=== PATIENT | female | born 1980 | race Caucasian/White ===

== ENCOUNTER 2024-11-02 14:11 | Observation (INO) ==
[2024-11-02 14:36] LABS: Basophils%(Percent) Auto 0.3 (0.1-0.85); Eosinophils#(Absolute)Auto 0.2 (0.0-0.2); Eosinophils%(Percent) Auto 1.5 % (0.4-2.8); Granulocytes % - Auto 44.8 % (47.8-71.3); Granulocytes#(Absolute)- Auto 4.6 (2.3-6.0); Hematocrit 39.2 % (35.9-46.7); Monocytes #(Absolute)- Auto 0.6 (1.1-3.1); Monocytes %(Percent)- Auto 6.1 % (3.6-9.8); Platelet Count 388 K/uL (152-353); White Blood Count 10.2 K/uL (4.3-9.3)
[2024-11-02] MEDS ORDERED: ASPIRIN 325 MG TABLET.DR PO ONE (14:38)
[2024-11-02] MEDS: ASPIRIN 325 MG TABLET PO ONE (14:39)
[2024-11-02 14:42] LABS: Potassium 4.3 mmol/L (3.6-5.2)
[2024-11-02 17:21] LABS: Urine Appearance CLEAR (CLEAR); Urine Blood NEGATIVE (NEG - TRACE); Urine Color YELLOW (STRAW/YELL.); Urine Urobilinogen Normal (NORMAL)
[2024-11-02 17:39] LABS: Amphetamine Screen Urine NEG. (NEGATIVE); Cannabinoid Screen Urine NEG. (NEGATIVE); Cocaine Screen Urine NEG. (NEGATIVE); Methadone Screen Urine NEG. (NEGATIVE); Opiate Screen Urine NEG. (NEGATIVE)
--- NOTE | 2024-11-02 17:59 | Emergency Department Note ---
HPI - Chest Pain General Chief Complaint: Chest Pain Stated Complaint: chest pain Time Seen by Provider: 11/02/24 14:22 Source: patient Mode of arrival: walk-in Limitations: no limitations History of Present Illness HPI narrative: 44-year-old female patient presents conscious alert and oriented x 4 to the ER complaining of substernal chest pain with heart palpitations that started about 30 minutes prior to coming to ER. Patient states that the palpitations were taking her breath. She states that when this started she became very anxious. Patient states that she has a history of hypertension and that she is compliant with her medications. Patient does state that she is a smoker and drinks beer on occasion. Denies any cough cold congestion. Denies any fever chills or bodyaches. MD complaint: Reports chest pain Pertinent past history: Reports other (anxiety); Denies coronary artery disease, prior [place], [employer], known aortic aneurysm, asthma or CABG Onset (ago): minute(s) (30) Timing of current episode: Reports constant Prior episodes: No Onset: Reports during rest Pain location: Reports left chest Pain radiation: Reports none Severity: mild Quality: Reports heaviness Relieving factors: Reports nothing Exacerbating factors: Reports nothing Context: Denies recent illness, recent surgery, recent immobilization, recent travel, trauma/injury, new medications, history of DVT/PE or non compliance with medication Associated symptoms: Denies nausea, vomiting, diaphoresis or dyspnea Treatment prior to arrival: Reports none Risk Factors Coronary artery disease risk factors: Reports hypertension and family history of CAD before age 50 Thoracic aortic dissection risk factors: Reports longstanding hypertension Related Data On Oral Contraceptives: No Allergies Allergy/AdvReac Type Severity Reaction Status Date / Time No Known Drug Allergies Allergy Verified 11/02/24 14:25 Review of Systems Status of ROS 10 or more systems reviewed and unremark able except as noted in history and below Cardiovascular Reports: chest pain and palpitations Exam Constitutional: normal general appearance, no apparent distress and average body habitus Vital Signs - 24 hr 11/02/24 14:15 11/02/24 14:15 11/02/24 14:30 Temperature 98.0 F Pulse Rate 112 H 92 H Respiratory Rate 20 15 Blood Pressure 175/100 153/89 Pulse Oximetry 99 99 98 Oxygen Delivery Me thod Room Air Room Air 11/02/24 15:01 11/02/24 15:31 11/02/24 16:15 Temperature Pulse Rate 91 H 85 99 H Respiratory Rate 16 16 16 Blood Pressure 144/87 133/73 146/92 Pulse Oximetry 98 98 99 Oxygen Delivery Me thod Room Air Room Air Room Air HENMT: normocephalic Eyes: PERRL, EOMs intact bilaterally and conjunctivae normal Neck/C-Spine: visual inspection normal and trachea midline Lymph: no lymphadenopathy noted Chest: inspection of chest normal and palpation of chest normal Respiratory: breath sounds equal bilaterally, normal respiratory effort and clear to auscultation bilaterally Cardiovascular: normal heart rate noted and regular rhythm noted Gastrointestinal: abdomen normal to inspection, abdomen soft to palpation and nontender to palpation Back/Pelvis: spine normal to inspection Extremities: normal to inspection 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 Abdomen soft and nontender to palpation. Normoactive bowel sounds. No rigidity or distention is noted. EKG shows normal sinus rhythm with occasional PVCs. Cardiac enzymes are negative x 2. Patient was given aspirin 325 mg p.o. I have discussed with the patient and they desire to admit her for further evaluation and treatment of chest pain. Patient is in agreement. Vital Signs Vital signs: Vital Signs Temperature 98.0 F 11/02/24 14:15 Pulse Rate 112 H 11/02/24 14:15 Respiratory Rate 20 11/02/24 14:15 Blood Pressure 175/100 11/02/24 14:15 Pulse Oximetry 99 11/02/24 14:15 Oxygen Delivery Method Room Air 11/02/24 14:15 Temperature 98.0 F 11/02/24 14:15 Pulse Rate 99 H 11/02/24 16:15 Respiratory Rate 16 11/02/24 16:15 Blood Pressure 146/92 11/02/24 16:15 Pulse Oximetry 99 11/02/24 16:15 Oxygen Delivery Method Room Air 11/02/24 16:15 MDM - Chest Pain Differential Diagnosis Differential diagnosis: Likely fracture of rib, pneumothorax, stable angina, unstable angina pectoris, atypical chest pain, st elevation myocardial infarction, costochondritis and chest pain Medical Records Data Attestation: I reviewed the patient's medical records. Lab Data Attestation: I reviewed the patient's lab results. Labs: Lab Results 11/02/24 11/02/24 11/02/24 Range/Units 14:32 15:09 16:40 WBC 10.2 H (4.3-9.3) K/uL RBC 4.1 (4.00-5.50) M/uL Hgb 13.2 (12.5-15.8) gm/dL Hct 39.2 (35.9-46.7) % MCV 96.0 H (81.0-93.7) fl MCH 32.3 H (27.6-32.2) pg MCHC 33.6 (33.1-35.3) g/dl RDW 13.5 (11.4-14.2) % Plt Count 388 H (152-353) K/uL MPV 8.3 (6.9-10.8) fl Gran % 44.8 L (47.8-71.3) % Lymph % (Auto) 47.3 H (20.0-43.0) % [place] % (Auto) 6.1 (3.6-9.8) % Eos % (Auto) 1.5 (0.4-2.8) % Baso % (Auto) 0.3 (0.1-0.85) Lymph # (Auto) 4.8 H (1.1-3.1) [place] # (Auto) 0.6 L (1.1-3.1) Eos # (Auto) 0.2 (0.0-0.2) Baso # (Auto) 0.0 (0.0-0.1) Absolute Gran (auto) 4.6 (2.3-6.0) Sodium 138 (136-145) mmol/L Potassium 4.3 (3.6-5.2) mmol/L Chloride 101.0 (98-107) mmol/L Carbon Dioxide 25 (21-32) mmol/L Anion Gap 12.0 (4-14) mEq/L BUN 10 (7-18) mg/dL Creatinine 0.9 (0.6-1.3) mg/dL Estimated GFR 79.9 (>59.9) Glucose 109 (70-110) mg/dL Calcium 8.6 (8.5-10.1) mg/dL Total Bilirubin 0.14 (0.0-1.0) mg/dL AST 15 (15-37) U/L ALT 20 L (30-65) U/L Alkaline Phosphatase 74 (50-136) U/L Total Creatine Kinase 57 (26-192) U/L Troponin I High Sens 18.50 18.20 (4.0-60.4) ng/L Total Protein 7.5 (6.4-8.2) g/dL Albumin 3.7 (3.4-5.0) g/dL Urine Color (STRAW/YELL.) Urine Appearance (CLEAR) Ur Specific [place] (1.001-1.035) Urine Protein (NEGATIVE) Urine Glucose (UA) (NORMAL) Urine Ketones (NEGATIVE) Urine Occult Blood (NEG - TRACE) Urine Nitrite (NEGATIVE) Urine Bilirubin (NEGATIVE) Urine Urobilinogen (NORMAL) Ur Leukocyte Esterase (NEGATIVE) Urine Test (Negative) Fluid pH (5 - 9) Urine Opiates Screen (NEGATIVE) Urine Methadone Screen (NEGATIVE) Barbiturate Screen (NEGATIVE) Ur Phencyclidine Scrn (NEGATIVE) Amphetamines Screen (NEGATIVE) U Benzodiazepines Scrn (NEGATIVE) Urine Cocaine Screen (NEGATIVE) U Marijuana (THC) Screen (NEGATIVE) COVID-19 ([place]) Not detected (Not Detectd) Influenza Type A Ag Negative (Negative) Influenza Type B Ag Negative (Negative) 11/02/24 Range/Units 17:06 WBC (4.3-9.3) K/uL RBC (4.00-5.50) M/uL Hgb (12.5-15.8) gm/dL Hct (35.9-46.7) % MCV (81.0-93.7) fl MCH (27.6-32.2) pg MCHC (33.1-35.3) g/dl RDW (11.4-14.2) % Plt Count (152-353) K/uL MPV (6.9-10.8) fl Gran % (47.8-71.3) % Lymph % (Auto) (20.0-43.0) % [place] % (Auto) (3.6-9.8) % Eos % (Auto) (0.4-2.8) % Baso % (Auto) (0.1-0.85) Lymph # (Auto) (1.1-3.1) [place] # (Auto) (1.1-3.1) Eos # (Auto) (0.0-0.2) Baso # (Auto) (0.0-0.1) Absolute Gran (auto) (2.3-6.0) Sodium (136-145) mmol/L Potassium (3.6-5.2) mmol/L Chloride (98-107) mmol/L Carbon Dioxide (21-32) mmol/L Anion Gap (4-14) mEq/L BUN (7-18) mg/dL Creatinine (0.6-1.3) mg/dL Estimated GFR (>59.9) Glucose (70-110) mg/dL Calcium (8.5-10.1) mg/dL Total Bilirubin (0.0-1.0) mg/dL AST (15-37) U/L ALT (30-65) U/L Alkaline Phosphatase (50-136) U/L Total Creatine Kinase (26-192) U/L Troponin I High Sens (4.0-60.4) ng/L Total Protein (6.4-8.2) g/dL Albumin (3.4-5.0) g/dL Urine Color Yellow (STRAW/YELL.) Urine Appearance Clear (CLEAR) Ur Specific [place] 1.020 (1.001-1.035) Urine Protein Negative (NEGATIVE) Urine Glucose (UA) Normal (NORMAL) Urine Ketones Negative (NEGATIVE) Urine Occult Blood Negative (NEG - TRACE) Urine Nitrite Negative (NEGATIVE) Urine Bilirubin Negative (NEGATIVE) Urine Urobilinogen Normal (NORMAL) Ur Leukocyte Esterase Negative (NEGATIVE) Urine Test Negative (Negative) Fluid pH 7.0 (5 - 9) Urine Opiates Screen Neg. (NEGATIVE) Urine Methadone Screen Neg. (NEGATIVE) Barbiturate Screen Neg. (NEGATIVE) Ur Phencyclidine Scrn Neg. (NEGATIVE) Amphetamines Screen Neg. (NEGATIVE) U Benzodiazepines Scrn Neg. (NEGATIVE) Urine Cocaine Screen Neg. (NEGATIVE) U Marijuana (THC) Screen Neg. (NEGATIVE) COVID-19 ([place]) (Not Detectd) Influenza Type A Ag (Negative) Influenza Type B Ag (Negative) Imaging Data Imaging ordered: Chest x-ray ECG Data Attestation: I personally reviewed and interpreted this ECG as follows: Interpretation: Normal sinus rhythm with occasional PVCs Discharge Plan Discharge Patient Disposition: Admitted As Observation Condition: Stable Clinical Impression: Chest pain Time of Disposition: 17:55 [facility] Medical History Perirectal abscess Hypertension Anxiety Surgical History History of tubal ligation Social History Smoking status: former smoker What is your current living situation: I presently have a place to live
[2024-11-02] MEDS: MELATONIN 5 MG TABLET PO PRN (22:04)
[2024-11-03 07:57] VITALS: BP 135/83; PULSE 60; RESP 19; TEMP 97.8
--- NOTE | 2024-11-03 09:46 | Short Stay Summary ---
H&P: HPI History of Present Illness Chief complaint: chest pain Narrative: Pleasant 44 year old female here with complaints of chest pain and palpitations that were taking her breath. She was admitted for observation and troponins have been negative. She denies any further symptoms. Tox screen and urine negative. [place] was [place] to the [place] vacation and does not live here locally. She is accompanied by family members. Review of Systems Status of ROS 10 or more systems reviewed and unremark able except as noted in history and below [facility] Medical History (Updated 11/03/24 @ 09:44 by Chelsea Davila NP) Hypertension Perirectal abscess Anxiety Surgical History History of tubal ligation Family History Parent DAD No problems noted. Grandmother GRANDMOTHER Heart disease Other History of heart attack Social History Smoking status: former smoker What is your current living situation: I presently have a place to live Problems where you live: no known problems Highest level of school completed/degree received: College Meds Home Medications and Allergies Home Medications Medication Instructions Recorded Confirmed Type fluoxetine 20 mg capsule 20 mg PO DAILY 11/02/2410/07 History metoprolol succinate 50 mg 50 mg PO DAILY 11/02/24 History tablet,extended release 24 hr pantoprazole 40 mg tablet,delayed 40 mg PO DAILY 11/0211/02/24 History release Allergies Allergy/AdvReac Type Severity Reaction Status Date / Time No Known Drug Allergies Allergy Verified 11/02/24 14:25 Exam Constitutional: normal general appearance, no apparent distress, average body habitus, no limitations and alert Vital Signs - 24 hr 11/02/24 14:15 11/02/24 14:15 11/02/24 14:30 Temperature 98.0 F Pulse Rate 112 H 92 H Pulse Rate [Right Brachial] Respiratory Rate 20 15 Blood Pressure 175/100 153/89 Blood Pressure [Ri ght Arm] Pulse Oximetry 99 99 98 Oxygen Delivery Me thod Room Air Room Air 11/02/24 15:01 11/02/24 15:31 11/02/24 16:15 Temperature Pulse Rate 91 H 85 99 H Pulse Rate [Right Brachial] Respiratory Rate 16 16 16 Blood Pressure 144/87 133/73 146/92 Blood Pressure [Ri ght Arm] Pulse Oximetry 98 98 99 Oxygen Delivery Me thod Room Air Room Air Room Air 11/02/24 17:00 11/02/24 18:00 11/02/24 18:12 Temperature 98 F Pulse Rate 87 84 Pulse Rate [Right Brachial] 83 Respiratory Rate 19 15 20 Blood Pressure 162/83 143/89 Blood Pressure [Ri ght Arm] 137/94 Pulse Oximetry 98 97 96 Oxygen Delivery Me thod Room Air Room Air Room Air 11/02/24 18:12 11/02/24 18:15 11/02/24 19:54 Temperature 98.0 F 98.2 F Pulse Rate 84 Pulse Rate [Right Brachial] 79 Respiratory Rate 15 17 Blood Pressure 143/89 Blood Pressure [Ri ght Arm] 139/101 Pulse Oximetry 97 98 Oxygen Delivery Ma thod Room Air Room Air 11/03/24 00:00 11/03/24 04:00 11/03/24 07:56 Temperature 98.2 F 98.3 F 97.8 F Pulse Rate Pulse Rate [Right Brachial] 96 H 66 60 Respiratory Rate 18 17 19 Blood Pressure Blood Pressure [Ri ght Arm] 106/58 136/80 135/83 Pulse Oximetry 96 98 96 Oxygen Delivery Me thod Room Air Room Air Room Air HENMT: normocephalic Eyes: PERRL, EOMs intact bilaterally, conjunctivae normal and no nystagmus Neck/C-Spine: visual inspection normal and trachea midline Lymph: no lymphadenopathy noted Chest: inspection of chest normal and palpation of chest normal Respiratory: breath sounds equal bilaterally, normal respiratory effort, clear to auscultation bilaterally, no wheezes, no rales, no retractions and no use of accessory muscles Cardiovascular: normal heart rate noted, regular rhythm noted, no gallop, no rub, no murmur, no JVD, no clicks, peripheral pulses 2+ throughout and no addit ional abnormal heart sounds Gastrointestinal: abdomen normal to inspection, abdomen soft to palpation and nontender to palpation Genitourinary: deferred Back/Pelvis: spine normal to inspection Extremities: normal to inspection, normal to palpation, no tenderness, full ROM, no joint enlargement and no deformity 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, no movement abnormality noted, no focal motor deficit noted, no sensory deficits noted, gait normal, speech normal, coordination normal and GCS normal Psychiatry: mental status grossly normal, oriented x3, thought process normal, cooperative, psychomotor activity normal and memory normal Skin: skin color normal, no rash, no jaundice, no petechiae and no mottling Assessment and Plan Assessment and Plan (1) Palpitations: Code(s): R00.2 - Palpitations (2) Chest pain: Code(s): R07.9 - Chest pain, unspecified (3) Hypertension: Code(s): I10 - Essential (primary) hypertension (4) Anxiety: Code(s): F41.9 - Anxiety disorder, unspecified Plan Resolved, negative EKG and troponins. Discharge home to follow up with PCP. Results Labs Labs: CBC 11/02/24 Range/Units 14:32 WBC 10.2 H (4.3-9.3) K/uL RBC 4.1 (4.00-5.50) M/uL Hgb 13.2 (12.5-15.8) gm/dL Hct 39.2 (35.9-46.7) % Plt Count 388 H (152-353) K/uL Gran % 44.8 L (47.8-71.3) % Lymph % (Auto) 47.3 H (20.0-43.0) % [place] % (Auto) 6.1 (3.6-9.8) % Eos % (Auto) 1.5 (0.4-2.8) % Baso % (Auto) 0.3 (0.1-0.85) Lymph # (Auto) 4.8 H (1.1-3.1) [place] # (Auto) 0.6 L (1.1-3.1) Eos # (Auto) 0.2 (0.0-0.2) Baso # (Auto) 0.0 (0.0-0.1) Absolute Gran (auto) 4.6 (2.3-6.0) CMP 11/02/24 14:32 Sodium 138 Potassium 4.3 Chloride 101.0 Carbon Dioxide 25 BUN 10 Creatinine 0.9 Glucose 109 Calcium 8.6 Cardiac Enzymes 11/02/24 14:32 Total Creatine Kinase 57 Liver Function 11/02/24 Range/Units 14:32 Total Bilirubin 0.14 (0.0-1.0) mg/dL AST 15 (15-37) U/L ALT 20 L (30-65) U/L Alkaline Phosphatase 74 (50-136) U/L Albumin 3.7 (3.4-5.0) g/dL Urine 11/02/24 17:06 Urine Color Yellow Urine Appearance Clear Ur Specific [place] 1.020 Urine Protein Negative Urine Glucose (UA) Normal DS: Providers Provider Date of admission: 11/02/24 18:01 Primary care physician: NO PCP Provider Attending physician on discharge: Chelsea Davila Discharging clinician: Chelsea Davila Anticipated date of discharge: 11/03/24 DS: Summary Hospital Course Hospital Course: Patient was evaluated in the ER found to be in no acute distress breath sounds are clear and equal bilaterally. Abdomen soft and nontender to palpation. Normoactive bowel sounds. No rigidity or distention is noted. EKG shows normal sinus rhythm with occasional PVCs. Cardiac enzymes are negative x 2. Patient was given aspirin 325 mg p.o. I have discussed with the patient and they desire to admit her for further evaluation and treatment of chest pain. Patient is in agreement. Discharge home as all symptoms resolved, negative troponins, and EKG. Status at Discharge Functional status at discharge: independent ambulation Overall status at discharge: patient is back to baseline Time Spent with Patient Time attestation: Total time spent providing and/or coordinating discharge services: 45 Discharge Plan Discharge Disposition: Home, Self-Care Condition: Stable Discharge Medications: Continued metoprolol succinate 50 mg tablet extended release 24 hr 50 mg PO DAILY Patient Comments: TAKE 1 TABLET BY MOUTH ONCE DAILY pantoprazole 40 mg tablet,delayed release (DR/EC) 40 mg PO DAILY Patient Comments: TAKE 1 TABLET BY MOUTH ONCE DAILY IN THE MORNING BEFORE BREAKFAST fluoxetine 20 mg capsule 20 mg PO DAILY Patient Comments: TAKE 1 CAPSULE BY MOUTH ONCE DAILY Discharge Orders: Discharge Order (Routine); Ordered 11/03/24 Ordered By: Chelsea Davila Activity: increase activity as tolerated and resume usual activities as tolerated Diet: advance to your usual diet Assessment: Follow up with PCP in one week. Forms: Portal/Health Info Access Inst Follow-Ups: Provider,NO PCP [Primary Care Provider, Adminstration]
== END 2024-11-03 09:59 | disposition home or self-care (01) ==
LOC: MS 14:11 → ED 14:11 → MS 18:15
PROVIDERS: ADMIT Nurse Practitioner Family; ATTEND Nurse Practitioner Family
DX: Z79.899 Other long term (current) drug therapy; R07.2 Precordial pain; I10 Essential (primary) hypertension; Z87.891 Personal history of nicotine dependence; F41.8 Other specified anxiety disorders; Z82.49 Family history of ischemic heart disease and other diseases of the circulatory system; R00.2 Palpitations